=== PATIENT | male | born 1980 | race Caucasian/White ===

== ENCOUNTER 2016-08-30 20:53 | Emergency (ER) | payer OTHER ==
--- NOTE | ~2016-08-30 | CR127 ---
[facility]. [facility] A Service of [facility] RADIOLOGY TEXT RESULTS PATIENT: LOU PICKERING LOCATION: CFTX : 76 UNIT #: [id number] AGE: [address]: Sukumar Llamas SEX: M ORDER DR: [id number] [facility] [address] [place], [place] [address] [id number] E MR#: [id number] Acc #: [id number] NAME: LOU PICKERING : 1980 SEX: M STUDY DATE/TIME: 08/30/2016 20:37 UNIT: [facility] ROOM: STUDY DESCRIPTION: CR Foot Complete Min 3 View Rt Attending Physician: Sukumar Llamas P.A.-C. Ordering Physician: Sukumar Llamas P.A.-C. Primary Care Physician: Ermias Reinoso M.D. MEDICAL IMAGING REPORT This report is preliminary unless electronic signature is present EXAM Right foot 3 views HISTORY Patient twisted ankle today pain ankle and foot right. Fell. Swelling. FINDINGS Three views of the right foot are reviewed. See separate dictation of the ankle. Again there is mildly comminuted minimally-displaced fracture of the distal fibula predominately obliquely oriented. Cannot exclude a subtle nondisplaced fracture posterior malleolus. No additional fracture of the right foot is suspected. There is considerable soft tissue swelling. IMPRESSION Redemonstration of ankle fractures including the lateral malleolus and possible nondisplaced posterior malleolar fracture. No additional right foot fracture is seen. Considerable soft tissue swelling especially laterally. Dictated by... Kell Gomez M.D. THIS IS AN ELECTRONICALLY VERIFIED REPORT Kell Gomez M.D. at 09/01/2016 7:47 AM Emma TD: 09/01/2016 06:45 JOB #: [id number] MEDICAL IMAGING REPORT COPY
--- NOTE | ~2016-08-30 | CR21 ---
[facility] A Service of [facility] RADIOLOGY TEXT RESULTS PATIENT: LOU PICKERING LOCATION: CFTX : 76 UNIT #: [id number] AGE: [address]: Sukumar Llamas SEX: M ORDER DR: [id number] [facility] [address] [place], [place] [address] [id number] E MR#: [id number] Acc #: [id number] NAME: LOU PICKERING : 1980 SEX: M STUDY DATE/TIME: 08/30/2016 20:35 UNIT: [facility] ROOM: STUDY DESCRIPTION: CR Ankle Min 3 Views Rt Attending Physician: Sukumar Llamas P.A.-C. Ordering Physician: Sukumar Llamas P.A.-C. Primary Care Physician: Ermias Reinoso M.D. MEDICAL IMAGING REPORT This report is preliminary unless electronic signature is present EXAM Right ankle 3 views. HISTORY Fell twisted ankle. Pain and swelling. Fell. 08/30/2016. FINDINGS Three views of the right ankle were reviewed. There is a predominantly obliquely oriented mildly comminuted fracture of the distal lateral malleolus. It is minimally impacted by about 2-3 mm, minimally displaced by about 2-3 mm. The fracture is associated with overlying soft tissue swelling. The ankle is still anatomic. On the lateral view there may be a small nondisplaced fracture of the posterior malleolus. Please correlate further clinically. IMPRESSION 1. There is a predominantly obliquely oriented fracture of the lateral malleolus distal fibula with minimal displacement, minimal comminution. The ankle mortis is still anatomic. There is considerable soft tissue swelling especially laterally. 2. On the lateral view there may be a nondisplaced fracture of the posterior malleolus (posterior inferior tibia) please correlate further clinically. Dictated by... Kell Gomez M.D. THIS IS AN ELECTRONICALLY VERIFIED REPORT Kell Gomez M.D. at 09/01/2016 7:47 AM DIANN/kathleen TD: 09/01/2016 06:30 [facility] A Service of [facility] RADIOLOGY TEXT RESULTS PATIENT: LOU PICKERING LOCATION: [facility] #: [id number] : 76 UNIT #: [id number] AGE: [address]: Sukumar Llamas PAC SEX: M ORDER DR: BRANDEN #: [id number] MEDICAL IMAGING REPORT COPY
[~2016-08-30 20:53] MED LIST: ACYCLOVIR400 MG PO; FLEXERIL10 MG PO; IBUPROFEN800 MG PO; METOPROLOL PO; NO MEDICATIONS; OMEPRAZOLE40 M1 PO
== END 2016-08-30 21:42 | disposition home or self-care (01) ==
LOC: CFTX 20:53
DX: S82.61XA Displaced fracture of lateral malleolus of right fibula, initial encounter for closed fracture (principal); K21.9 Gastro-esophageal reflux disease without esophagitis; I10 Essential (primary) hypertension; F17.200 Nicotine dependence, unspecified, uncomplicated; X50.1XXA Overexertion from prolonged static or awkward postures, initial encounter; Y92.009 Unspecified place in unspecified non-institutional (private) residence as the place of occurrence of the external cause
CPT/HCPCS: 29515; 73610; 73630; 99283